=== PATIENT | female | born 1990 | race Caucasian/White ===

== ENCOUNTER 2019-02-17 15:48 | Outpatient (CLI) | payer MEDICAID ==
[~2019-02-17] VITALS: Ht 160 cm; Wt 83.2 kg
[~2019-02-17 15:48] MED LIST: DOXYCYCLINE 10100 MG PO; IRON FERROUS S325 MG PO; MOTRIN 600600 MG/TAB PO; PERCOCET 325 MG1 TA2 PO; PRENATAL1 TA1 PO; PREVACID30 MG PO; SENOKOT S 50 MG1 TAB PO; SLOW FE45 MG PO
--- NOTE | 2019-02-17 15:50 | NUR ---
1550-G2 PATIENT OF DR. ROMAN HERE 35.5 REPORTING POSSIBLE SROM SINCE THIS AM OFF AND ON MOISTURE AND MILD PRESSURE INTERMITTENLY. DENIES VAGINAL BLEEDING OR DECREASED FM. ASSISTED INTO GOWN AND PLACED ON EFM. DR. MULLER AWARE OF PATIENT ARRIVAL. 1605-AMNITEST NEG, SVE 1707-SVE , MOIST GLOVE WITH CHECK UPDATED MD WHO IS ON UNIT AND HAS REVIEWED STRIP. 1720-SPEC EXAM WITH ANITEST NEG, SLIDE COLLECTED BY MD AND TAKEN TO LOOK UNDER MICROSCOPE IN LAB. 1734-MD REPORTS SLIDE WITHOUT EVIDENCE OF AMNIOTIC FLUID. DISCHARGE ORDER GIVEN. PATIEN TOFF EFM. 1745-AMBULATORY OFF UNIT WITH SIGNIFICANT OTHER.
[2019-02-17 16:08] VITALS: BP 125/68; PULSE 100; TEMP 98.6
[2019-02-17 16:30] VITALS: BP 100/58; PULSE 81
[2019-02-17 17:00] VITALS: BP 102/57; PULSE 88
== END 2019-02-17 17:45 | disposition home or self-care (01) ==
LOC: LDRO 15:48
DX: Z34.83 Encounter for supervision of other normal pregnancy, third trimester (principal); Z3A.35 35 weeks gestation of pregnancy

== ENCOUNTER 2019-03-13 05:06 | Inpatient (IN) | payer MEDICAID ==
[2019-03-13] VITALS (19 sets, daily range): BP systolic 93–120; BP diastolic 51–68; PULSE 75–112; TEMP 97.8–98.8
[~2019-03-13] VITALS: Ht 160 cm; Wt 87.3 kg
--- NOTE | 2019-03-13 05:15 | NUR ---
0515- PT PRESENTS TO LDR FOR SCHEDULED SECTION, AMBULATORY TO ROOM 209, CHANGED INTO GOWN.
[2019-03-13 06:06] LABS: MEAN CELL VOLUME 88 fl (80.0-100.0); MEAN CORPUSCULAR HGB CONC 32 g/dl (33.0-37.0); MEAN PLATELET VOLUME 11.1 fl (7.4-10.4); PLATELET COUNT 210 K/mm3 (130-400); REDCELL DISTRIBUTION WIDTH-CV 13.6 % (11.5-14.5)
[2019-03-13 06:08] LABS: HEMATOCRIT 30.9 % (37.0-47.0); HEMOGLOBIN 9.9 g/dl (12.5-16.0); MEAN CORPUSCULAR HEMOGLOBIN 28 pg (27.0-31.0)
--- NOTE | 2019-03-13 06:20 | NUR ---
0620-Patient in bed Wedge Left with EFM on, Reactive FHR with FHR baseline 130bpm. Off EFM, Assessment complete. Mons pubis clipped, Abdomen previously cleansed with provided hibacleanse scrub this am. 0710-Patient up to ambulate to OR with spouse Alberto at side.
[2019-03-13 06:34] LABS: BAND 1 % (0-10); LYMPHOCYTE 22 % (20.0-51.0); NEUTROPHILS 61 % (42.0-75.2)
[2019-03-13 06:35] LABS: PLATELET ESTIMATE NORMAL (NORMAL)
--- NOTE | 2019-03-13 07:09 | NUR ---
0709-PATIENT ON OR TABLE, EFM PLUGGED IN. FHR AUDIBLE AT 125BPM. DIFFICULTY TRACING DUE TO MATERNAL POSITIONING FOR SPINAL PLACEMENT.
--- NOTE | 2019-03-13 08:15 | NUR ---
0815-Patient to PACU via bed. A&Ox4. Report recieved from MIRANDA Marquis. IVF to left hand. Nunn to DD,clear yellow urine. Abdomen with abdominal binder. Dressing to abdominal incision C/D/I. Fundal massage Arturo leonard WNL. VSS, See Recovery flow record.
[2019-03-13] MEDS ORDERED: PERCOCET 325 MG1 TA2 PO (08:20)
[2019-03-13] MEDS ORDERED: MOTRIN 800800 MG/TAB PO (08:20)
[2019-03-14] VITALS: BP 99/56; PULSE 84; TEMP 97.7
[2019-03-14 08:00] VITALS: BP 108/50; PULSE 94; TEMP 98.3
--- NOTE | 2019-03-14 09:59 | NUR ---
Initial visit; Parents thanked [employer] for offering congratulations and God's blessings to their family for the of their son. [employer] thanked family for choosing [facility].
[2019-03-14 16:07] VITALS: BP 90/60; PULSE 86; TEMP 98.6
[2019-03-14 19:15] VITALS: BP 96/51; PULSE 95; TEMP 98.4
--- NOTE | 2019-03-15 01:00 | NUR ---
Assumed care at this time. rooming in. Pt asleep.
[2019-03-15 07:13] VITALS: BP 103/58; PULSE 77; TEMP 98.1
== END 2019-03-15 11:20 | disposition home or self-care (01) | DRG 787 ==
LOC: LDR → OB 05:06 → LDR 13:47 → OB 03-15 11:20
PROVIDERS: ADMIT Obstetrics & Gynecology
PROC: 10D00Z1 Extraction of Products of Conception, Low, Open Approach (ICD-10-PCS; principal; 2019-03-13)
DX: O34.211 Maternal care for low transverse scar from previous cesarean delivery (principal); O98.32 Other infections with a predominantly sexual mode of transmission complicating childbirth; O99.02 Anemia complicating childbirth; D64.9 Anemia, unspecified; O26.893 Other specified pregnancy related conditions, third trimester; R51 Headache; A56.8 Sexually transmitted chlamydial infection of other sites; O99.214 Obesity complicating childbirth; O77.0 Labor and delivery complicated by meconium in amniotic fluid; Z3A.39 39 weeks gestation of pregnancy; Z37.0 Single live birth; Z86.14 Personal history of Methicillin resistant Staphylococcus aureus infection; Z23 Encounter for immunization
CPT/HCPCS: J0690; J1885; J2175; J2270; J2370; J2405; J2590; J3010; J7120